=== PATIENT | female | born 1955 | race Caucasian/White ===

== ENCOUNTER → 2024-06-01 | Outpatient (CLI) | payer MEDICARE ==
[~2024-06-01] MED LIST: Iohexol 300 - 100 ML VIAL IV ONE
== END ==
LOC: RAD 09:14
DX: N28.1 Cyst of kidney, acquired (principal)
CPT/HCPCS: Q9967

== ENCOUNTER → 2024-06-04 | Outpatient (CLI) | payer MEDICARE | LOC: RAD 08:32 | DX: R91.1 Solitary pulmonary nodule (principal); R59.0 Localized enlarged lymph nodes | CPT/HCPCS: Q9967 ==

== ENCOUNTER → 2024-09-16 | Outpatient (CLI) | payer MEDICARE | LOC: RAD 08:38 | DX: R91.1 Solitary pulmonary nodule (principal) | CPT/HCPCS: Q9967 ==